=== PATIENT | male | born 1985 | race Caucasian/White ===

== ENCOUNTER 2016-12-30 12:50 | Emergency (ER) | payer BC, OTHER ==
[2016-12-30] MEDS ORDERED: Adacel (T-DAP) 0.5 ML VIAL ONE (13:19)
[2016-12-30] MEDS ORDERED: Lidocaine 1% w/Epinephrine 1:200K 30 ML VIAL ONE (14:08)
[2016-12-30] MEDS ORDERED: Ketorolac Tromethamine 60 MG/2 ML VIAL ONE (14:54)
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
== END 2016-12-30 15:07 | disposition home or self-care (01) ==
LOC: ERS 12:50
DX: S01.81XA Laceration without foreign body of other part of head, initial encounter (principal); E78.5 Hyperlipidemia, unspecified; I10 Essential (primary) hypertension; F41.9 Anxiety disorder, unspecified; F32.9 Major depressive disorder, single episode, unspecified; F20.9 Schizophrenia, unspecified; F17.210 Nicotine dependence, cigarettes, uncomplicated; Z79.899 Other long term (current) drug therapy; V43.52XA Car driver injured in collision with other type car in traffic accident, initial encounter; W22.11XA Striking against or struck by driver side automobile airbag, initial encounter
CPT/HCPCS: 12031; 36415; 70450; 72125; 80307; 90471; 90715; 96372; J1885

== ENCOUNTER 2017-12-12 16:31 | Outpatient (CLI) | payer OTHER | END 2017-12-12 16:32 | disposition home or self-care (01) | LOC: BICRAD 16:31 | PROVIDERS: ATTEND Internal Medicine Hematology & Oncology | DX: D64.89 Other specified anemias (principal) | CPT/HCPCS: 71046 ==

== ENCOUNTER 2018-04-21 09:18 | Outpatient (CLI) | payer OTHER, MEDICARE, MEDICAID ==
--- NOTE | 2018-04-21 11:17 | ULT ---
ABDOMINAL ULTRASOUND: 04/21/2018 PROVIDED CLINICAL HISTORY: Vomiting. FINDINGS: The visualized abdominal aorta, IVC, and pancreas appear normal. There is prominent increased echoge nicity of the hepatic parenchyma, compatible with fatty infiltration. No evidence for mass or intrah epatic biliary ductal dilatation. Focal sparing is seen about the gallbladder fossa. The common maddy t is not dilated. The gallbladder is contracted without evidence for stones or pericholecystic fluid . The spleen is prominent in size, measuring about 14.5 x 5.6 x 5.4 cm. The kidneys demonstrate no hydronephrosis or mass. IMPRESSION: 1. Fatty infiltration of the liver. 2. Splenomegaly. POS: OFF
== END 2018-04-21 09:19 | disposition home or self-care (01) ==
LOC: ULT 09:18
PROVIDERS: ATTEND Nurse Practitioner Family
DX: R11.10 Vomiting, unspecified (principal); E78.5 Hyperlipidemia, unspecified; R89.9 Unspecified abnormal finding in specimens from other organs, systems and tissues; I10 Essential (primary) hypertension; E66.9 Obesity, unspecified; K21.9 Gastro-esophageal reflux disease without esophagitis; R19.7 Diarrhea, unspecified; K76.0 Fatty (change of) liver, not elsewhere classified; F17.210 Nicotine dependence, cigarettes, uncomplicated; R16.1 Splenomegaly, not elsewhere classified; F15.20 Other stimulant dependence, uncomplicated; D58.2 Other hemoglobinopathies; K22.10 Ulcer of esophagus without bleeding
CPT/HCPCS: 76700

== ENCOUNTER 2018-05-18 07:08 | Outpatient (CLI) | payer OTHER, MEDICARE ==
[2018-05-18] MEDS ORDERED: ISOVUE-370 76%-LOCM 1 ML ONE (07:47)
--- NOTE | 2018-05-18 15:29 | CT ---
CT CHEST WITHOUT CONTRAST CT ABDOMEN WITHOUT CONTRAST CT PELVIS WITHOUT CONTRAST CT CHEST WITH CONTRAST CT ABDOMEN WITH CONTRAST CT PELVIS WITH CONTRAST: HISTORY: Lung nodule. Hyperactivity of the pancreas. COMPARISON: CT 04/21/2018. FINDINGS: Previously reticulonodular opacities in the left lung have improved. No new suspicious pulmonary nod ule. There are perifissural nodules bilaterally. The thyroid is unremarkable. No mediastinal adenopathy. No pericardial effusion. No axillary adenopathy. No internal mammary adenopathy. There is diffuse hepatic steatosis. No pancreatic mass. The spleen is unremarkable as well as the kidneys and adrenal glands. Aortic contour is normal. No retroperitoneal adenopathy. The gallbladder is unremarkable. The appendix is visualized and is normal. Incidental note is made of a small splenule. No osseous abnormality. IMPRESSION: 1. Interval resolution of the previously described reticulonodular opacities in the left lung, most likely post-infectious. 2. Diffuse hepatic steatosis. 3. No abnormal pancreatic mass. POS: [facility]
== END 2018-05-18 07:09 | disposition home or self-care (01) ==
LOC: BICCT 07:08
PROVIDERS: ATTEND Nurse Practitioner Family
DX: R91.1 Solitary pulmonary nodule (principal); R16.1 Splenomegaly, not elsewhere classified; R11.10 Vomiting, unspecified; E78.5 Hyperlipidemia, unspecified; R93.89 Abnormal findings on diagnostic imaging of other specified body structures; Q45.3 Other congenital malformations of pancreas and pancreatic duct; I10 Essential (primary) hypertension; E66.9 Obesity, unspecified; K76.0 Fatty (change of) liver, not elsewhere classified; F20.0 Paranoid schizophrenia; Z72.0 Tobacco use; R73.01 Impaired fasting glucose; E55.9 Vitamin D deficiency, unspecified; R82.4 Acetonuria; R79.89 Other specified abnormal findings of blood chemistry; K02.9 Dental caries, unspecified; K04.7 Periapical abscess without sinus; R91.8 Other nonspecific abnormal finding of lung field
CPT/HCPCS: 71250; 71260; 74177; Q9966

== ENCOUNTER 2019-01-09 11:56 | Emergency (ER) | payer OTHER, MEDICARE ==
[2019-01-09] MEDS ORDERED: Acetaminophen 500 MG TAB ONE (13:24)
[2019-01-09] MEDS ORDERED: Metoclopramide HCl 10 MG/2 ML VIAL ONE (13:24)
[2019-01-09 13:28] LABS: #Lymphocytes 1.6 thou/uL (1.20-3.40); #Monocytes 0.5 thou/uL (0.11-0.59); #Neutrophils 4.6 thou/uL (1.40-6.50); %Basophils 0.5 % (0.0-1.0); %Eosinophils 0.3 % (0.0-10.0); %Lymphocytes 23.3 % (21.0-51.0); %Monocytes 7.3 % (0.0-10.0); %Neutrophils 68.7 % (42.0-75.0); Hemoglobin 13.8 g/dL (14.0-18.0); Mean Corpuscular Hemoglobin 31.4 pg (27.0-31.0); Mean Corpuscular Volume 89.6 fL (78.0-98.0); Mean Platelet Volume 8.1 fL (7.4-10.4); Platelet Count 178 thou/uL (130-400); RBC Distribution Width 11.9 % (11.5-14.5); Red Blood Cell (RBC) Count 4.41 mill/uL (4.70-6.10); White Blood Cell (WBC) Count 6.8 thou/uL (4.8-10.8)
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
--- NOTE | 2019-01-09 13:31 | CT ---
CT BRAIN WITHOUT CONTRAST: Date: 01/09/19 HISTORY: Facial swelling, headache. FINDINGS: Comparison made with exam of 12/30/16. No evidence of acute infarct, hemorrhage, midline shift, or abnormal extra-axial fluid collections ar e seen. The ventricular size is normal and the basilar cisterns are patent. The bony calvarium is int act. There is minimal mucosal disease in the paranasal sinuses. IMPRESSION: No CT evidence of acute intracranial process. POS: OFF
[2019-01-09 13:51] LABS: ALT (SGPT) 49 U/L (8-55); AST (SGOT) 36 U/L (5-34); Albumin 4.1 g/dL (3.5-5.0); Alkaline Phosphatase 64 U/L (40-110); Anion Gap 12 mmol/L (10-20); BUN (Urea Nitrogen) Less than 4 mg/dL (8.9-20.6); Bilirubin, Total 0.6 mg/dL (0.2-1.2); Calc. Creatinine Clearance 0 mL/min (70-130); Calcium 9.6 mg/dL (7.8-10.44); Carbon Dioxide 27 mmol/L (22-29); Chloride 108 mmol/L (98-107); Estimated GFR-MDRD Greater than 90; Globulin 2.4 g/dL (2.4-3.5); Glucose 96 mg/dL (70-105); Lipase 10 U/L (8-78); Magnesium 1.9 mg/dL (1.6-2.6); Potassium 3.3 mmol/L (3.5-5.1); Protein, Total 6.5 g/dL (6.0-8.3); Sodium 144 mmol/L (136-145)
[2019-01-09] MEDS ORDERED: Ketorolac Tromethamine 30 MG/ML VIAL ONE (14:57)
[2019-01-09] MEDS ORDERED: Magnesium 2 GM/50 ML BAG (IN WATER) ONE (15:02)
--- NOTE | 2019-01-13 23:23 | EKG ---
Test Reason : Blood Pressure : / mmHG Vent. Rate : 101 BPM Atrial Rate : 101 BPM P-R Int : 166 ms QRS Dur : 090 ms QT Int : 350 ms P-R-T Axes : 036 023 -16 degrees QTc Int : 453 ms Sinus tachycardia Nonspecific T wave abnormality Abnormal ECG Confirmed by BARTOLOME MICHAELS DO ([id number]), acquisition editor JASON HARDWICK ([id number]) on 01/13/2019 11:23:01 PM Referred By: XENIA Confirmed By:BARTOLOME MICHAELS DO
== END 2019-01-09 15:56 | disposition home or self-care (01) ==
LOC: ERS 11:56
DX: M79.89 Other specified soft tissue disorders (principal); R22.0 Localized swelling, mass and lump, head; R19.7 Diarrhea, unspecified; R51 Headache; E78.5 Hyperlipidemia, unspecified; E78.00 Pure hypercholesterolemia, unspecified; I10 Essential (primary) hypertension; F41.9 Anxiety disorder, unspecified; F32.9 Major depressive disorder, single episode, unspecified; F20.9 Schizophrenia, unspecified; F17.210 Nicotine dependence, cigarettes, uncomplicated; Z79.899 Other long term (current) drug therapy
CPT/HCPCS: 70450; 71045; 80053; 83690; 83735; 83880; 84443; 84484; 85025; 87045; 87046; 87427; 87449; 93005; 96365; 96367; 96375; J1885; J2765; J3475

== ENCOUNTER 2020-05-02 14:32 | Outpatient (CLI) | payer MEDICARE, OTHER | END 2020-05-02 14:33 | disposition home or self-care (01) | LOC: BICRAD 14:32 | PROVIDERS: ATTEND Nurse Practitioner Family | DX: D72.9 Disorder of white blood cells, unspecified (principal) | CPT/HCPCS: 71046; 81001; 87086 ==

== ENCOUNTER 2020-07-12 15:53 | Emergency (ER) | payer MEDICARE, OTHER ==
[2020-07-12] MEDS ORDERED: Dexamethasone 10 MG/ML VIAL ONE (16:51)
[2020-07-12] MEDS ORDERED: Ketorolac Tromethamine 30 MG/ML VIAL ONE (16:51)
[2020-07-12 17:11] LABS: ALT (SGPT) 60 U/L (8-55); AST (SGOT) 30 U/L (5-34); Albumin 4.2 g/dL (3.5-5.0); Alkaline Phosphatase 84 U/L (40-110); Anion Gap 18 mmol/L (10-20); BUN (Urea Nitrogen) 9 mg/dL (8.9-20.6); Bilirubin, Total 0.7 mg/dL (0.2-1.2); Calc. Creatinine Clearance 0 mL/min (70-130); Calcium 9.3 mg/dL (7.8-10.44); Carbon Dioxide 19 mmol/L (22-29); Chloride 104 mmol/L (98-107); Globulin 3.1 g/dL (2.4-3.5); Glucose 146 mg/dL (70-105); Potassium 3.6 mmol/L (3.5-5.1); Protein, Total 7.3 g/dL (6.0-8.3); Sodium 137 mmol/L (136-145)
[2020-07-12 17:14] LABS: #Lymphocytes 1.1 thou/uL (1.20-3.40); #Monocytes 0.8 thou/uL (0.11-0.59); #Neutrophils 10.8 thou/uL (1.40-6.50); %Basophils 0.2 % (0.0-1.0); %Eosinophils 0.2 % (0.0-10.0); %Lymphocytes 8.6 % (21.0-51.0); %Monocytes 6.1 % (0.0-10.0); Hemoglobin 15.4 g/dL (14.0-18.0); Mean Corpuscular HGB CONC 33.3 g/dL (32.0-36.0); Mean Corpuscular Hemoglobin 31.7 pg (27.0-31.0); Mean Platelet Volume 9.4 fL (7.4-10.4); Platelet Count 170 thou/uL (130-400); RBC Distribution Width 12.4 % (11.5-14.5); Red Blood Cell (RBC) Count 4.85 mill/uL (4.70-6.10); White Blood Cell (WBC) Count 12.7 thou/uL (4.8-10.8)
== END 2020-07-12 19:43 | disposition home or self-care (01) ==
LOC: ERS 15:53
DX: J18.9 Pneumonia, unspecified organism (principal); Z20.822 Contact with and (suspected) exposure to COVID-19; E78.5 Hyperlipidemia, unspecified; E78.00 Pure hypercholesterolemia, unspecified; I10 Essential (primary) hypertension; F17.210 Nicotine dependence, cigarettes, uncomplicated
CPT/HCPCS: 80053; 85025; 94760; U0003; U0005; 36415; 87635; 96374; 96375; J1100; J1885

== ENCOUNTER 2020-07-22 08:33 | Outpatient (CLI) | payer MEDICARE, OTHER | END 2020-07-22 08:34 | disposition home or self-care (01) | LOC: BICRAD 08:33 | PROVIDERS: ATTEND Nurse Practitioner Family | DX: U07.1 COVID-19 (principal); J12.82 Pneumonia due to coronavirus disease 2019 | CPT/HCPCS: 71046 ==

== ENCOUNTER 2020-11-07 15:50 | Outpatient (CLI) | payer MEDICARE, MEDICAID | END 2020-11-07 15:51 | disposition home or self-care (01) | LOC: BICRAD 15:50 | PROVIDERS: ATTEND Nurse Practitioner Family | DX: D72.829 Elevated white blood cell count, unspecified (principal) | CPT/HCPCS: 71046 ==